=== PATIENT | female | born 1985 | race American Indian/Alaskan Native ===

== ENCOUNTER 2017-01-25 09:35 | Emergency (ER) | payer MEDICAID ==
[2017-01-25 09:39] VITALS: BP 122/89; PULSE 95; RESP 19; TEMP 98.3; O2SAT 99
--- NOTE | 2017-01-25 10:01 | ED PDOC ---
HPI: CCC, URI, Sore Throat Time Seen by Provider: 01/25/17 09:46 Chief Complaint (Nursing): ENT Problem History Per: Patient (Sore throat, pain on swallowing x 1 day. No fever.) Onset/Duration Of Symptoms: Days (1) Current Symptoms Are (Timing): Still Present Location Of Pain: Throat Associated Symptoms: denies: Fever Severity: Mild Pain Scale Rating Of: 2 Past Medical History Vital Signs: Last Vital Signs Temp 98.3 F 01/25/17 09:37 Pulse 95 H 01/25/17 09:37 Resp 19 01/25/17 09:37 BP 122/89 01/25/17 09:37 Pulse Ox 99 01/25/17 09:37 - Medical History PMH: Asthma, Bronchitis - Surgical History Surgical History: (x 1) - Family History Family History: States: Unknown Family Hx - Home Medications Home Medications: Ambulatory Orders Medication Instructions Recorded Albuterol 0.5% [Albuterol 0.5% 3 ml IH Q4 PRN #0 neb 10/26/14 Inhal Donna (2.5 mg/0.5 ml) UD] Ondansetron [Zofran Odt] 4 mg PO Q8H PRN #15 odt 10/26/14 Prednisone 50 mg PO DAILY #5 tab 10/26/14 Albuterol Sulfate [Proair Hfa] 2 puff IN Q4H PRN #1 unit 01/10/16 Cetirizine HCl [Zyrtec] 10 mg PO HS #30 capsule 01/10/16 Fluticasone Propionate [Flonase] 2 spr IN DAILY #1 bottle 01/10/16 Ketotifen Fumarate [Zaditor] 5 ml OU BID #5 ml 01/10/16 Albuterol 0.5% [Albuterol 0.5% 3 ml IH Q4 PRN #0 neb 04/21/16 Inhal Donna (2.5 mg/0.5 ml) UD] Benzonatate 200 mg PO TID PRN #20 capsule 04/21/16 Levofloxacin [Levaquin] 500 mg PO DAILY #7 tablet 04/21/16 Azithromycin [Zithromax] 250 mg PO DAILY #6 tab 01/25/17 - Allergies Allergies/Adverse Reactions: Allergies Allergy/AdvReac Type Severity Reaction Status Date / Time No Known Allergies Allergy Verified 05/17/15 10:24 Review of Systems Constitutional: Negative for: Fever ENT: Positive for: Throat Pain Respiratory: Positive for: Cough Physical Exam - Physical Exam Appears: Positive for: Non-toxic, No Acute Distress Skin: Positive for: Normal Color, Warm, DRY ENT: Positive for: Pharyngeal Erythema. Negative for: Tonsillar Exudate Neck: Positive for: Normal, Painless ROM Cardiovascular/Chest: Positive for: Regular Rate, Rhythm Respiratory: Positive for: CNT, Normal Breath Sounds - ECG O2 Sat by Pulse Oximetry: 99 Disposition - Clinical Impression Clinical Impression: Pharyngitis - Patient ED Disposition Is Patient to be Admitted: No Counseled Patient/Family Regarding: Studies Performed, Diagnosis, Need For Followup, Rx Given - Disposition Referrals: [facility] [Outside] Disposition: Routine/Home Disposition Time: 10:01 Condition: FAIR Prescriptions: Azithromycin [Zithromax] 250 mg PO DAILY #6 tab Instructions: Pharyngitis (ED)
== END 2017-01-25 10:43 | disposition home or self-care (01) ==
LOC: H.ER 09:35
DX: J02.9 Acute pharyngitis, unspecified (principal)

== ENCOUNTER 2017-05-28 16:55 | Emergency (ER) | payer MEDICAID ==
[2017-05-28 17:07] VITALS: BP 142/86; PULSE 101; RESP 16; TEMP 98.9; O2SAT 100
--- NOTE | 2017-05-28 17:34 | ED PDOC ---
HPI: Wound Care - HPI Time Seen by Provider: 05/28/17 17:02 Chief Complaint (Nursing): Wound Check Chief Complaint (Provider): Wound Check History Per: Patient History Of Present Illness: Amarilis Juarez, a 32 year old female, presents to the ED for a wound check. The patient reports that she had a contraceptive implant placed in her left upper arm this morning. She states that there was a large white gauze over the wound and when she removed it she saw bleeding and that prompted to come the the ED. The patient reports that she tried calling the office but they weren't open. Exam Limitations: no limitations Onset/Duration Of Symptoms: Hrs Current Symptoms Are (Timing): Still Present Location Of Injury: Left: Arm Past Medical History Reviewed: Historical Data, Nursing Documentation, Vital Signs Vital Signs: Last Vital Signs Temp 98.9 F 05/28/17 17:01 Pulse 101 H 05/28/17 17:01 Resp 16 05/28/17 17:01 BP 142/86 05/28/17 17:01 Pulse Ox 100 05/28/17 17:01 - Medical History PMH: Asthma, Bronchitis - Surgical History Surgical History: (x 1) - Family History Family History: States: Unknown Family Hx - Social History Current smoker - smoking cessation education provided: No Alcohol: None - Home Medications Home Medications: Ambulatory Orders Medication Instructions Recorded Albuterol 0.5% [Albuterol 0.5% 3 ml IH Q4 PRN #0 neb 10/26/14 Inhal Donna (2.5 mg/0.5 ml) UD] Ondansetron [Zofran Odt] 4 mg PO Q8H PRN #15 odt 10/26/14 Prednisone 50 mg PO DAILY #5 tab 10/26/14 Albuterol Sulfate [Proair Hfa] 2 puff IN Q4H PRN #1 unit 01/10/16 Cetirizine HCl [Zyrtec] 10 mg PO HS #30 capsule 01/10/16 Fluticasone Propionate [Flonase] 2 spr IN DAILY #1 bottle 01/10/16 Ketotifen Fumarate [Zaditor] 5 ml OU BID #5 ml 01/10/16 Albuterol 0.5% [Albuterol 0.5% 3 ml IH Q4 PRN #0 neb 04/21/16 Inhal Donna (2.5 mg/0.5 ml) UD] Benzonatate 200 mg PO TID PRN #20 capsule 04/21/16 Levofloxacin [Levaquin] 500 mg PO DAILY #7 tablet 04/21/16 Azithromycin [Zithromax] 250 mg PO DAILY #6 tab 01/25/17 - Allergies Allergies/Adverse Reactions: Allergies Allergy/AdvReac Type Severity Reaction Status Date / Time No Known Allergies Allergy Verified 05/28/17 17:01 Review of Systems ROS Statement: Except As Marked, All Systems Reviewed And Found Negative Musculoskeletal: Positive for: Other (Wound on left upper arm) Physical Exam - Reviewed Nursing Documentation Reviewed: Yes Vital Signs Reviewed: Yes - Physical Exam Appears: Positive for: Non-toxic, No Acute Distress Head Exam: Positive for: ATRAUMATIC, NORMAL INSPECTION, NORMOCEPHALIC Skin: Positive for: Normal Color, Warm, Dry. Negative for: Rash Eye Exam: Positive for: Normal appearance, EOMI, PERRL Cardiovascular/Chest: Positive for: Regular Rate, Rhythm, Chest Non Tender. Negative for: Tachycardia Respiratory: Positive for: Normal Breath Sounds. Negative for: Accessory Muscle Use, Rales, Rhonchi, Wheezing, Respiratory Distress Extremity: Positive for: Normal ROM, Tenderness (small amount of tenderness to left inner arm.), Other (Steri strips in place; no active bleeding; small amount of dried blood; small amount of ecchymosis - All to left inner arm. ). Negative for: Deformity, Swelling Neurologic/Psych: Positive for: Alert, Oriented, Gait - ECG O2 Sat by Pulse Oximetry: 100 (RA) Pulse Ox Interpretation: Normal Medical Decision Making Medical Decision Makin Initial Impression: 32 year old female presenting for wound check Initial Plan: * Scribe Attestation Documented by Vernell Eddy acting as a scribe for Neida Andrea PA-C. Scribe Attestation All medical record entries made by the Scribe were at my direction and personally dictated by me. I have reviewed the chart and agree that the record accurately reflects my personal performance of the history, physical exam, medical decision making, and the department course for this patient. I have also personally directed, reviewed, and agree with the discharge instructions and disposition. Disposition - Clinical Impression Clinical Impression: Visit for wound check - Patient ED Disposition Is Patient to be Admitted: No - Disposition Disposition: Routine/Home Disposition Time: 17:06 Condition: STABLE Instructions: Contraceptive Implant (GEN) Forms: [employer] (Gambian)
== END 2017-05-28 17:21 | disposition home or self-care (01) ==
LOC: H.ER 16:55
DX: Z48.00 Encounter for change or removal of nonsurgical wound dressing (principal)